=== PATIENT | male | born 1950 | race Caucasian/White ===

== ENCOUNTER 2022-02-15 09:56 | Outpatient (CLI) | payer MEDICARE, SELFPAY | END 2022-02-15 09:57 | disposition home or self-care (01) | PROVIDERS: Visit Provider Nurse Practitioner | DX: C61 Malignant neoplasm of prostate (principal) | CPT/HCPCS: 72195 ==

== ENCOUNTER 2023-04-19 13:00 | Outpatient (RCR) | payer MEDICARE, SELFPAY ==
[2022-10-31 14:37] VITALS: BP 138/80; PULSE 70; RESP 18; TEMP 36.6; O2SAT 98
[2022-10-31 14:55] VITALS: BP 125/84; PULSE 70
[2022-10-31 15:59] LABS: PSA Diagnostic* < 0.06 ng/mL (0.10-4.00)
--- NOTE | 2023-03-21 15:39 | URNOTE ---
Per Aman HALLMAN, prior authorization is not required for [facility] ([id number]).
[2023-04-19 12:20] VITALS: BP 130/80; PULSE 60; RESP 16; TEMP 36.5; O2SAT 99
== END 2023-04-29 23:59 | disposition home or self-care (01) ==
LOC: CCIC 13:00
PROVIDERS: PCP Internal Medicine; Referring Provider Internal Medicine; Visit Provider Internal Medicine
DX: C61 Malignant neoplasm of prostate (principal)
CPT/HCPCS: 36415; 84153; 96401; J9217

== ENCOUNTER 2023-10-11 10:18 | Outpatient (RCR) | payer OTHER, SELFPAY ==
--- NOTE | 2023-09-26 09:56 | ONC.NURNOTE ---
Dx: Prostate cancer
[2023-10-11 10:30] VITALS: BP 146/83; PULSE 60; RESP 16; TEMP 36; O2SAT 100
== END 2024-04-08 23:59 | disposition home or self-care (01) ==
LOC: CCIC 10:18
PROVIDERS: PCP Internal Medicine; Visit Provider Internal Medicine
DX: C61 Malignant neoplasm of prostate (principal)
CPT/HCPCS: 96401; J9217